=== PATIENT | female | born 1970 | race American Indian/Alaskan Native ===

== ENCOUNTER 2023-11-28 07:48 | Emergency (ER) | payer OTHER ==
[2023-11-28 08:01] VITALS: BP 130/85; PULSE 100; RESP 18; TEMP 98; BMI 27.4
[2023-11-28] MEDS ORDERED: IBUPROFEN 600 MG TABLET (FP) PO ONE (09:43)
[2023-11-28] MEDS: IBUPROFEN 600 MG TABLET (FP) PO ONE (09:53)
== END 2023-11-28 10:04 | disposition home or self-care (01) ==
LOC: JER 07:48 → JERFT 07:48
DX: S13.4XXA Sprain of ligaments of cervical spine, initial encounter (principal); S09.90XA Unspecified injury of head, initial encounter; W22.09XA Striking against other stationary object, initial encounter; Y99.0 Civilian activity done for income or pay
CPT/HCPCS: 99283-25